=== PATIENT | female | born 1960 | race African-American/Black ===

== ENCOUNTER → 2017-02-06 | Outpatient (CLI) | payer BC, OTHER ==
[~2017-02-06] VITALS: Ht 162.6 cm; Wt 51.4 kg
[~2017-02-06] MED LIST: AMBIEN 10 MG TA10 MG PO; AMITRIPTYLINE H25 M2 PO; CELEXA 20 MG TA20 M1 PO; CENESTIN1.25 MG PO; CENTRUM TABLET1 TAB PO; CLIMARA 0.00.0375 MG TD; CLIMARA PRO PA1 EACH TD; CLIMARA1 EAC2 TD; COLACE100 MG PO; CYMBALTA30 MG PO; DESOXIMETASONE15 G1; DOXYCYCLINE 10100 MG PO; ESTROGEN-METHY1 EAC2 PO; FLAX SEED OIL1000 MG PO; FLEXERIL PO; GABAPENTIN100 MG PO; HAIR, SKIN & N1 EAC1 PO; HYDROCHLOROTH12.5 MG PO; HYDROCODON-ACE1 EAC4 PO; HYDROCODONE-AP1 EA11 PO; LIPITOR 20 MG T20 M1 PO; LIPITOR20 MG PO; LYRICA 75 MG CA75 MG; MEDROLDOSEPACK PO; MOBIC15 MG PO; MULTIVITAMINS1 EAC7 PO; NEURONTIN 300300 M1 PO; NORCO 10-325 T1 EACH PO; NORCO 5-325 TA1 EACH PO; OXYCONTIN10 M1 PO; PENICILLIN VK500 M1 PO; PERCOCET 5-3251 EACH PO; PHENERGAN 25 MG25 M1 PO; PREDNISONE 20 M20 M1 PO; PREMARIN0.625 MG PO; PROVERA2.5 MG PO; REMERON 30 MG T30 M1 PO; REQUIP0.5 MG PO; THERAPEUTIC SH177 ML TP; TRAZODONE 150150 M1 PO; VALTREX1000 MG PO; VICODIN 5-5001 EACH PO; VITAMIN B-12100 MC1 PO; VITAMIN D400 UNI1 PO; ZANAFLEX4 MG PO; ZANTAC 150MG T150 M1 PO; ZOFRAN ODT4 MG PO
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
[2017-02-06 13:51] VITALS: BP 159/99
== END | disposition home or self-care (01) ==
LOC: PAIN 07:00
DX: M54.16 Radiculopathy, lumbar region (principal); M54.9 Dorsalgia, unspecified; E03.9 Hypothyroidism, unspecified; F11.20 Opioid dependence, uncomplicated; Z98.890 Other specified postprocedural states

== ENCOUNTER → 2017-03-10 | Outpatient (CLI) | payer BC, OTHER ==
[~2017-03-10] VITALS: Ht 162.6 cm; Wt 51.7 kg
--- NOTE | ~2017-03-10 | HPC ---
[facility] [place] [address] PAIN MANAGEMENT CONSULTATION Name: ANIYAH HILLS Room #: REG SRINIVAS Blevins#: [id number] Admission: 03/10/17 Attend Phys: Ebenezer Camarena DO Discharge: Date of : 60 Report #: [id number] THIS REPORT FOR: //name// CC: Manolo Camarena This is a pleasant 56-year-old female, well known to the pain clinic, being treated for symptomatic lumbar radiculopathy, axial back pain requiring complex medication management. She was last seen in the pain clinic 12/08/2016. We continued on baseline medications. Returns to pain clinic today. She is actually doing remarkably well, "better than she has in some time". 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 She notes well pain is a 9/10. She is quite functional. She notes pain in the low back and feet. She does use spinal cord stimulator. She notes the pain is exacerbated by sitting, bending or standing. PHYSICAL EXAMINATION: Unchanged, pleasant 56-year-old female, BMI is 19.6 kilograms per meter squared. Blood pressure is modestly elevated 153/96, pulse 82, respirations are 14. Rises from chair using armrest. Gait is tandem. Diffuse tenderness across the back. No discrete trigger points are noted. Lower extremity strength is preserved at this time. Straight leg raise is negative. We reviewed the fact that opiate medications are being used to provide analgesia adequate to support activities of daily living, not attempting to achieve a specific pain score on the 0-10 Visual Analog Scale. The current opiate medications are providing sufficient analgesia to allow the patient to participate in activities of daily living. The patient is not exhibiting any aberrant behavior suggestive of drug diversion. The patient is not having any adverse reactions to medications. The patient is not suffering from daytime somnolence or mental acuity changes. The patient is managing opiate-induced constipation with appropriate iwii-ghh-uuqywmx agents and dietary considerations. The patient was counseled on concern for caution with operating a motor vehicle while using opiate medications. A physical exam was performed and the patient's functional status was evaluated. All patients with back pain were advised against the bed rest greater than 4 days and were advised to return to normal activities. Pain score assessment was noted and the treatment plan was reviewed with the patient. All current medications, both prescribed and OTC were reviewed and reconciled on the electronic medical record. Tobacco screening was accomplished and smoking cessation was advised when indicated. BMI was noted and diet/exercise modification was recommended for all patients following outside normal parameters. I reviewed with the patient today their responsibilities to safeguard prescription medications, reviewed their responsibility to utilize medications only as prescribed by the physician. They are to seek and receive pain [address] [address] PAIN MANAGEMENT CONSULTATION Name: ANIYAH HILLS SIMONE Room #: REG CLHelene Blevins#: [id number] Admission: 03/10/17 Attend Phys: Ebenezer Camarena DO Discharge: Date of : 60 Report #: [id number] medications only from 1 physician group ( [facility]). They are to use 1 pharmacy and keep the clinic informed if they change pharmacies. Their responsibilities include making followup visits in a timely fashion and to avoid abrupt discontinuation of medication usage. Their responsibilities further include bringing their medications (bottles from the pharmacy with residual pills) to the visit for possible confirmation of pill counts and the patient understands it is their responsibility to submit to random drug screens to ensure both that the medications prescribed are present, and that no other controlled substances are present. All prescriptions provided today were generated electronically. ASSESSMENT: Chronic pain syndrome requiring complex medication management, axial back pain and lumbar radiculopathy. RECOMMENDATIONS: Continue current medication unchanged, hydrocodone 10/325 up to 4 a day, tizanidine 4 mg t.i.d. for spasm, meloxicam 15 mg 1 a day. I did renew Zofran 4 mg ODT tablet q. 8 hours for nausea, vomiting, limit 10 tablets. The patient was cautioned about this agent exacerbating opiate-induced constipation. Discharged in good and stable condition. Follow up in 2 months for reevaluation. <ELECTRONICALLY SIGNED> By: Ebenezer Camarena DO 03/13/17 1118 1411 2127 Ebenezer Camarena DO /nt
[2017-03-10 13:26] VITALS: BP 153/96
== END ==
LOC: PAIN 05:51
DX: G89.29 Other chronic pain (principal); M54.16 Radiculopathy, lumbar region

== ENCOUNTER → 2017-05-08 | Outpatient (CLI) | payer BC, OTHER ==
[~2017-05-08] VITALS: Ht 162.6 cm; Wt 50.6 kg
[~2017-05-08] MED LIST changes: +BACLOFEN 10MG T10 MG PO
[2017-05-08 08:49] VITALS: BP 151/81
== END | disposition home or self-care (01) ==
LOC: PAIN 06:42
DX: M54.16 Radiculopathy, lumbar region (principal); M54.9 Dorsalgia, unspecified; Z79.899 Other long term (current) drug therapy

== ENCOUNTER → 2017-07-06 | Outpatient (CLI) | payer BC, OTHER ==
[~2017-07-06] VITALS: Ht 162.6 cm; Wt 52.2 kg
[~2017-07-06] MED LIST changes: +REMERON15 MG PO
--- NOTE | ~2017-07-06 | HPC ---
[facility] [address] [place] [address] PAIN MANAGEMENT CONSULTATION Name: JEANAANIYAH ANN Room #: REG SRINIVAS Blevins#: [id number] Admission: 07/06/17 Attend Phys: Ebenezer Camarena DO Discharge: Date of : 60 Report #: [id number] THIS REPORT FOR: //name// CC: Manolo Camarena The patient is a pleasant 57-year-old female, long treated for symptomatic lumbar radiculopathy requiring high risk complex medication management for neuropathic pain component. The patient presents to pain clinic today for prolonged visit, she was seen from 9:10 to 9:35. Greater than 50% of this 25-minute visit was spent counseling the patient. Buccal drug swab at last visit was positive for prescribed medications, but also positive for Delta-9-THC. The patient returns to pain clinic today. She has been having increasing pain, right lateral leg down to the ankle. She has right lateral leg pain down to the ankle. She has right greater than left lower extremity weakness. Spinal cord stimulator she does use daily, gives her paresthesia into the feet and a little bit to both legs. She charges it once to twice a week. She notes pain is getting worse. She rates it 9 on a VAS, exacerbated with sitting, bending and standing. The stimulator does give some relief, repositioning give some relief and medication gives some relief. The patient has been taking hydrocodone 10/325 up to 4 a day. Baclofen for spasm. Medication list was reconciled with the patient today. She has been prescribed trazodone 150 mg at bedtime, mirtazapine 30 mg at bedtime, Cymbalta 30 mg daily. The patient tells me she stopped all of these agents. States that they made her feel anxious and depressed. She tells me she does "take a bite" of her 30 mg Remeron at bedtime occasionally. When confronted about the THC in her urine, she states while she may have used marijuana 1 time on May 23. I pointed out that the buccal swab was obtained May 08. She ultimately stated that she does use marijuana occasionally as appetite stimulant. I suggested that with prescriptions for multiple central acting agents including hydrocodone, mirtazapine, Duloxetine and trazodone along with baclofen, a variable amount of THC in marijuana can have significant problematic cross reactions. Suggested if she needs something for appetite stimulation, Remeron 15 mg at bedtime would be reasonable. She does suffer from chronic anxiety and I thought it would be perhaps better to use at least 1 of the prescription agents which she has used in the past, i.e., low dose Remeron. Suggested we will repeat a buccal swab today. Initially the patient stated she had not smoked marijuana in 6-8 weeks, but when we got ready to obtain the [facility] [address] [place] [address] PAIN MANAGEMENT CONSULTATION Name: HILLSANIYAH Room #: REG SRINIVAS Blevins#: [id number] Admission: 07/06/17 Attend Phys: Ebenezer Camarena DO Discharge: Date of : 60 Report #: [id number] buccal swab, she stated it might be "dirty." I told her we will go ahead and check today and if it is positive for THC, we will check again in 4 weeks. If she is truly a p.r.n. recreational user and abstains for 4 weeks, buccal swab should be negative at next visit. Physical exam shows a 57-year-old female, BMI is modestly diminished at 19.7 kilograms per meter squared. Blood pressure is moderately elevated 149/98, pulse 85, respirations are 14. Rises from chair using armrest, modestly antalgic gait, positive straight leg raise on the right at 30 degrees. Right leg does show diminished strength to hip flexion, lower extremity extension and plantar flexion, about 3-4/5 versus 4/5 for the left leg. Patellar reflex is absent on the right, 1/4 in the left. Achilles reflex 1/4 and symmetric. Last diagnostic study was MRI of the lumbar spine for about 3 years ago, July 2014. Does note severe right neural foraminal stenosis at L3-L4 and L5-S1. L4-L5 notes bilateral neural foraminal narrowing, perhaps little greater on the left than the right. ASSESSMENT: 1. Symptomatic lumbar radiculopathy, neuropathic pain requiring high risk complex medication management. 2. Acute exacerbation of lumbar radiculopathy. RECOMMENDATION: 1. Long discussion with the patient today about therapeutic options and medication management. Again, strongly encouraged to stop using marijuana. 2. Buccal swab accomplished today. 3. We will order a CT myelogram of the lumbar spine. 4. Lumbar epidural injection at L4-L5 today. 5. I will renew hydrocodone 10/325 for 30 days. 6. Start patient Remeron 15 mg at bedtime. 7. Follow up in 4 weeks for reevaluation. PROCEDURE: Lumbar epidural injection under fluoroscopy. PROCEDURE: Lumbar epidural steroid injection. PROCEDURE NOTE: After both written and informed consent to include risk of spinal cord damage, increased pain, weakness and dural puncture, the patient was taken to the fluoroscopy suite, placed in the prone position. After sterile prep and drape, a skin wheal with lidocaine was raised. A 22-gauge epidural Tuohy needle was inserted in the midline at L4-L5 with good loss to resistance. Negative aspiration for cerebrospinal fluid or blood was noted. Then 1 mL of Omnipaque under biplanar fluoroscopy showed good spread within the epidural space. This was followed with 80 mg of triamcinolone plus 1 mL of 1.5% preservative-free Xylocaine, 0.5 mL Xylocaine was then injected to flush the [facility] [address] [place] [address] PAIN MANAGEMENT CONSULTATION Name: ANIYAH HILLS Room #: REG CLHelene Blevins#: [id number] Admission: 07/06/17 Attend Phys: Ebenezer Camarena DO Discharge: Date of : 60 Report #: [id number] needle; it was removed. The patient was monitored for an appropriate period of time and discharged in good and stable condition. By: 1222 1449 Ebenezer Camarena DO /nt
[2017-07-06 08:48] VITALS: BP 148/98
== END | disposition home or self-care (01) ==
LOC: PAIN 06:08
DX: M54.16 Radiculopathy, lumbar region (principal)

== ENCOUNTER → 2017-07-11 | Outpatient (CLI) | payer BC, OTHER | LOC: RAD 09:38 | DX: M47.896 Other spondylosis, lumbar region (principal); M48.06 Spinal stenosis, lumbar region; M41.86 Other forms of scoliosis, lumbar region ==

== ENCOUNTER → 2017-07-20 | Outpatient (CLI) | payer BC, OTHER ==
[~2017-07-20] VITALS: Ht 162.6 cm; Wt 53.7 kg
--- NOTE | ~2017-07-20 | HPC ---
[facility] [place] [place] [address] PAIN MANAGEMENT CONSULTATION Name: ANIYAH HILLS Room #: REG SRINIVAS Blevins#: [id number] Admission: 07/20/17 Attend Phys: Ebenezer Camarena DO Discharge: Date of : 60 Report #: [id number] THIS REPORT FOR: //name// CC: Manolo Camarena DATE OF SERVICE: 07/20/2017 The patient is a 57-year-old female well known to the pain clinic, typically treated for lumbar radiculopathy, neuropathic pain requiring high risk complex medication management. She has a spinal cord stimulator in place. Last visit 07/06/2017, we did an epidural injection with incremental improvement of baseline pain. Started the patient on Remeron 15 mg at bedtime to help with appetite stimulant. Continued hydrocodone 10/325 up to 4 a day. The patient was having increasing ongoing pain, ordered a CT myelogram of the lumbar spine. The patient returns to pain clinic today. She was seen for moderately prolonged visit, during which we reviewed her CT myelogram findings. I discussed to her specific anatomy using the plastic model spine. The patient does have advanced lumbar spondylosis with a little scoliosis, multilevel central stenosis with a varying degrees and neural foraminal stenosis throughout the lumbar spine. She has some stenosis higher up at T12-L1, L1-L2 and L2-L3. We concluded this may be contributing to some of her abdominal pain. Overall, the patient notes subjective pain score is 8 on a VAS, primary pain, low back, buttocks and legs, again with a little abdominal wall pain. Pain is exacerbated with sitting, bending or standing. Spinal cord stimulator does help with pain. Current medications do keep patient functional. We reviewed the fact that opiate medications are being used to provide analgesia adequate to support activities of daily living, not attempting to achieve a specific pain score on the 0-10 Visual Analog Scale. The current opiate medications are providing sufficient analgesia to allow the patient to participate in activities of daily living. The patient is not exhibiting any aberrant behavior suggestive of drug diversion. The patient is not having any adverse reactions to medications. The patient is not suffering from daytime somnolence or mental acuity changes. The patient is managing opiate-induced constipation with appropriate fqeo-wbp-fshnmiu agents and dietary considerations. The patient was counseled on concern for caution with operating a motor vehicle while using opiate medications. A physical exam was performed and the patient's functional status was evaluated. All patients with back pain were advised against the bed rest greater than 4 days and were advised to return to normal activities. Pain score assessment was noted and the treatment plan was reviewed with the patient. All current [address] [address] PAIN MANAGEMENT CONSULTATION Name: ANIYAH HILLS Room #: REG SRINIVAS Blevins#: [id number] Admission: 07/20/17 Attend Phys: Ebenezer Camarena DO Discharge: Date of : 60 Report #: [id number] medications, both prescribed and OTC were reviewed and reconciled on the electronic medical record. Tobacco screening was accomplished and smoking cessation was advised when indicated. BMI was noted and diet/exercise modification was recommended for all patients following outside normal parameters. I reviewed with the patient today their responsibilities to safeguard prescription medications, reviewed their responsibility to utilize medications only as prescribed by the physician. They are to seek and receive pain medications only from 1 physician group ( [facility]). They are to use 1 pharmacy and keep the clinic informed if they change pharmacies. Their responsibilities include making followup visits in a timely fashion and to avoid abrupt discontinuation of medication usage. Their responsibilities further include bringing their medications (bottles from the pharmacy with residual pills) to the visit for possible confirmation of pill counts and the patient understands it is their responsibility to submit to random drug screens to ensure both that the medications prescribed are present, and that no other controlled substances are present. All prescriptions provided today were generated electronically. Last buccal swab obtained 07/06/2017 was positive for prescribed medications, no elicit agents were noted (the patient had prior had a single THC positive screen). I did note that there were nicotine metabolites present. We talked about smoking, which she does intermittently, suggest she discontinue that as it can contribute to osteoporosis and axial back pain as well as general poor health concerns. PHYSICAL EXAMINATION: Otherwise unchanged 57-year-old female, BMI is 20.3 kilograms per meter squared. Blood pressure is elevated today 171/99, pulse is 101, respirations are 14. Alert and oriented to person, place and time, judged to be a reasonable historian. Rises from chair using armrest. Diffuse tenderness in the lumbar spine. Gait is nominally antalgic. Lower extremity strength is generally preserved at this time. ASSESSMENT: Symptomatic lumbar radiculopathy, axial back pain, neuropathic pain requiring high risk complex medication management. I will ask buccal drug swab positive for prescribed medications and no others on 07/06/2017. RECOMMENDATION: I have taken the liberty of renewing hydrocodone 10/325 up to 4 a day, prescriptions for 2 weeks and 6 weeks release, follow up in 10 weeks for reevaluation. <ELECTRONICALLY SIGNED> By: Ebenezer Camarena DO 07/21/17 0819 1212 0541 Ebenezer Camarena DO /nt
[2017-07-20 11:04] VITALS: BP 171/99
== END | disposition home or self-care (01) ==
LOC: PAIN 06:35
DX: M54.16 Radiculopathy, lumbar region (principal); G62.9 Polyneuropathy, unspecified; Z79.899 Other long term (current) drug therapy

== ENCOUNTER → 2017-09-21 | Outpatient (CLI) | payer BC, OTHER ==
[~2017-09-21] VITALS: Ht 162.6 cm; Wt 54.0 kg
[~2017-09-21] MED LIST changes: +NORVASC10 MG PO
--- NOTE | ~2017-09-21 | HPC ---
[facility] [place] [address] PAIN MANAGEMENT CONSULTATION Name: HILLSANIYAH SIMONE Room #: REG SRINIVAS Blevins#: [id number] Admission: 09/21/17 Attend Phys: Ebenezer Camarena DO Discharge: Date of : 60 Report #: [id number] THIS REPORT FOR: //name// CC: Manolo Camarena HISTORY OF PRESENT ILLNESS: The patient is a pleasant 57-year-old female, long known to pain clinic, being treated for lumbar radiculopathy, neuropathic pain, thoracic radiculopathy, component of nicotine habituation, stable on complex medication management. She does use spinal cord stimulator with good efficacy. Last seen in pain clinic on 07/20/2017. She was having problems with weight loss. We have been using Remeron 15 mg at bedtime for appetite stimulation as well as sleep. BMI at last visit was 20.3 kilograms per meter squared, increased ever so slightly at 20.4 BMI today. Uses hydrocodone 10/325 up to 4 a day for ongoing lumbar radicular pain. Returns to pain clinic today noting that while medications are generally providing sufficient analgesia to participate in activities of daily living; with holiday meals and increased activity, she is having increasing pain, right lateral leg down the L4 distribution. Rates pain at 7 on a VAS, exacerbated with sitting, bending and standing, gets some relief with the spinal cord stimulator, repositioning and medication. PHYSICAL EXAMINATION: GENERAL: Shows 57-year-old female, BMI is 20.4 kilograms per meter squared. VITAL SIGNS: She is afebrile, temperature is 97.7. Vital signs show modest hypertension 173/92, pulse 70, respirations 14. EXTREMITIES: Rises from chair using armrest, moderately antalgic gait, positive straight leg raise on the right, decreased right hip flexion strength. Patellar reflexes absent on the right, 1/4 left. Achilles reflexes are symmetric. ASSESSMENT: 1. Symptomatic lumbar radiculopathy. 2. Acute exacerbation of lumbar radicular pain. 3. Neuropathic pain. 4. Thoracic radiculopathy with history of chronic pain syndrome requiring high risk complex medication management. RECOMMENDATIONS: 1. Renew hydrocodone 10/ up to 4 a day, I have taken the liberty of writing for 2 current medications. 2. Complex medication management on opiate consent to treat contract, last buccal swab on 07/07/2017 positive for prescribed medications. 3. Acute exacerbation of lumbar radiculopathy. RECOMMENDATION: Epidural injection under fluoroscopy today at L4-L5. PROCEDURE: Lumbar epidural injection under fluoroscopy. [address] [address] PAIN MANAGEMENT CONSULTATION Name: HILLSANIYAH Room #: REG SRINIVAS Blevins#: [id number] Admission: 09/21/17 Attend Phys: Ebenezer Camarena DO Discharge: Date of : 60 Report #: [id number] PROCEDURE NOTE: After both written and informed consent to include risk of spinal cord damage, increased pain, weakness and dural puncture, the patient was taken to the fluoroscopy suite, placed in the prone position. After sterile prep and drape, a skin wheal with lidocaine was raised. A 22-gauge epidural Tuohy needle was inserted in the midline at L4-L5 with good loss to resistance. Negative aspiration for cerebrospinal fluid or blood was noted. Then 1 mL of Omnipaque under biplanar fluoroscopy showed good spread within the epidural space. This was followed with 80 mg of triamcinolone plus 1 mL of 1.5% preservative-free Xylocaine, 0.5 mL Xylocaine was then injected to flush the needle; it was removed. The patient was monitored for an appropriate period of time and discharged in good and stable condition. We reviewed the fact that opiate medications are being used to provide analgesia adequate to support activities of daily living, not attempting to achieve a specific pain score on the 0-10 Visual Analog Scale. The current opiate medications are providing sufficient analgesia to allow the patient to participate in activities of daily living. The patient is not exhibiting any aberrant behavior suggestive of drug diversion. The patient is not having any adverse reactions to medications. The patient is not suffering from daytime somnolence or mental acuity changes. The patient is managing opiate-induced constipation with appropriate urrd-jri-mknxgwa agents and dietary considerations. The patient was counseled on concern for caution with operating a motor vehicle while using opiate medications. A physical exam was performed and the patient's functional status was evaluated. All patients with back pain were advised against the bed rest greater than 4 days and were advised to return to normal activities. Pain score assessment was noted and the treatment plan was reviewed with the patient. All current medications, both prescribed and OTC were reviewed and reconciled on the electronic medical record. Tobacco screening was accomplished and smoking cessation was advised when indicated. BMI was noted and diet/exercise modification was recommended for all patients following outside normal parameters. I reviewed with the patient today their responsibilities to safeguard prescription medications, reviewed their responsibility to utilize medications only as prescribed by the physician. They are to seek and receive pain medications only from 1 physician group ( [facility]). They are to use 1 pharmacy and keep the clinic informed if they change pharmacies. Their responsibilities include making followup visits in a timely fashion and to avoid abrupt discontinuation of medication usage. Their responsibilities further include bringing their medications (bottles from the pharmacy with residual pills) to the visit for possible confirmation of pill counts and the patient understands it is their responsibility to submit to random drug screens to ensure both that the medications prescribed are present, and that no other [facility] [address] [place] [address] PAIN MANAGEMENT CONSULTATION Name: ANIYAH HILLS SIMONE Room #: REG [facility].#: [id number] Admission: 09/21/17 Attend Phys: Ebenezer Camarena DO Discharge: Date of : 60 Report #: [id number] controlled substances are present. All prescriptions provided today were generated electronically. <ELECTRONICALLY SIGNED> By: Ebenezer Camarena DO 09/25/17 0759 0636 0948 Ebenezer Camarena DO /nt
[2017-09-21 08:23] VITALS: BP 173/92
== END | disposition home or self-care (01) ==
LOC: PAIN 06:32
DX: M54.16 Radiculopathy, lumbar region (principal); M54.14 Radiculopathy, thoracic region; Z98.890 Other specified postprocedural states; Z79.891 Long term (current) use of opiate analgesic; Z88.2 Allergy status to sulfonamides; Z79.899 Other long term (current) drug therapy

== ENCOUNTER 2017-09-22 14:04 | Emergency (ER) | payer BC, OTHER ==
[~2017-09-22] VITALS: Ht 162.6 cm; Wt 54.0 kg
--- NOTE | ~2017-09-22 | EKG ---
[address] [address] ELECTROCARDIOGRAM REPORT Name: ANIYAH HILLS Room #: DEP Felicity#: [id number] Admission: 09/22/17 Attend Phys: Discharge: 09/22/17 Date of : 60 Report #: [id number] THIS REPORT FOR: //name// [facility] ED Test Date: 2017-09-22 Test Time: 14:57:42 Pat Name: ANIYAH HILLS Department: Room: Gender: F [employer] Furn[employer] Installer: [id number] : 1960 Requested By: Payton Guillaume Order Number: [id number] MD: Palmer Schneider Measurements Intervals [place] Rate: 79 P: 81 OK: 144 QRS: 42 QRSD: 86 T: 32 QT: 355 QTc: 407 Interpretive Statements Sinus rhythm Probable left atrial enlargement Probable left ventricular hypertrophy Anterior ST elevation, probably due to LVH Compared to ECG 02/03/2015 10:38:19 Left ventricular hypertrophy now present ST (T wave) deviation now present Electronically Signed On 09-23-2017 12:41:46 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
[~2017-09-22 14:04] MED LIST changes: -NORVASC10 MG PO
[2017-09-22 15:06] LABS: ABSOLUTE NEUTROPHILS 3.7 thou/uL (1.4-8.2); BASOPHILS 0.7 % (0.0-2.0); EOSINOPHILS 0.5 % (0.0-3.0); HEMATOCRIT 39.6 % (37.0-47.0); HEMOGLOBIN 13.2 gm/dL (12.0-15.0); LYMPHOCYTES 31.9 % (24.0-44.0); MCH 32.1 pg (26.0-34.0); MCHC 33.4 g/dL (28.0-37.0); MCV 96.4 fL (80.0-100.0); MONOCYTES 8.8 % (1.0-8.0); PLATELET COUNT 228 thou/uL (150-400); POLYS 58.1 % (36.0-66.0); RBC 4.11 mil/uL (4.20-5.00); RDW 13.7 % (10.5-14.5); WBC 6.4 thou/uL (4.0-11.0)
[2017-09-22 15:14] LABS: ANION GAP 9 mmol/L (7-16); BUN 15 mg/dL (7-18); CALCIUM 9.4 mg/dL (8.5-10.1); CHLORIDE 104 mmol/L (98-107); CO2 25 mmol/L (21-32); CREATININE 0.8 mg/dL (0.6-1.0); GLUCOSE 119 mg/dL (74-106); POTASSIUM 3.5 mmol/L (3.5-5.1); SODIUM 138 mmol/L (136-145)
[2017-09-22 15:23] LABS: ALBUMIN 4.1 g/dL (3.4-5.0); SGOT 16 U/L (15-37); SGPT 17 U/L (30-65); TOTAL BILIRUBIN 0.3 mg/dL (<0.1-1.0); TOTAL PROTEIN 7.4 g/dL (6.4-8.2); TROPONIN-I < 0.04 ng/mL (<0.06)
[2017-09-22 15:30] LABS: URINE BILIRUBIN NEGATIVE (Negative); URINE BLOOD 3+ (Negative); URINE CLARITY CLEAR; URINE COLOR YELLOW; URINE GLUCOSE-RANDOM* NEGATIVE (Negative); URINE KETONES NEGATIVE (Negative); URINE LEUKOCYTES NEGATIVE (Negative); URINE NITRITE NEGATIVE (Negative); URINE PROTEIN (DIPSTICK) NEGATIVE (Negative); URINE SPECIFIC GRAVITY 1.025 (1.003-1.035); URINE UROBILINOGEN 0.2 E.U./dl (0.2-1.0)
[2017-09-22 15:37] LABS: MUCUS 4-6 Moderate strn/LPF (None Seen)
[2017-09-22 15:38] LABS: BACTERIA 1-9 Few /HPF (None Seen); CASTS None Seen /LPF (None Seen); CRYSTALS None Seen /LPF (None Seen); SQUAMOUS 0-3 Few /LPF (0-3); URINE RBC 3-10 Few /HPF (0-2); URINE WBC 0-5 Rare /HPF (0-5)
[2017-09-22] MEDS ORDERED: NORVASC10 MG PO (16:40)
[2017-09-22 16:59] VITALS: BP 170/97
[2017-12-08] MEDS ORDERED: REMERON15 MG PO (09:48)
[2017-12-08] MEDS ORDERED: NORCO 10-325 T1 EACH PO (09:48)
[2017-12-08] MEDS ORDERED: MOBIC15 MG PO (09:48)
[2017-12-08] MEDS ORDERED: BACLOFEN 10MG T10 MG PO (09:48)
[2018-02-01] MEDS ORDERED: BACLOFEN 10MG T10 MG PO (10:04)
[2018-02-01] MEDS ORDERED: NORCO 10-325 T1 EAC1 PO (10:04)
[2018-02-01] MEDS ORDERED: NORCO 10-325 T1 EACH PO (10:04)
[2018-02-01] MEDS ORDERED: REMERON15 MG PO (10:04)
[2018-02-01] MEDS ORDERED: MOBIC15 MG PO (10:04)
[2018-03-08] MEDS ORDERED: BACLOFEN 10MG T10 MG PO (11:26)
[2018-03-08] MEDS ORDERED: REMERON15 MG PO (11:26)
[2018-03-08] MEDS ORDERED: MOBIC15 MG PO (11:26)
[2018-03-08] MEDS ORDERED: NORCO 10-325 T1 EAC1 PO (11:26)
[2018-03-08] MEDS ORDERED: ZOFRAN ODT4 MG PO (11:26)
[2018-05-30] MEDS ORDERED: NORCO 10-325 T1 EACH PO (14:44)
[2018-05-30] MEDS ORDERED: NORCO 10-325 T1 EAC1 PO (14:44)
[2018-05-30] MEDS ORDERED: REMERON15 MG PO (14:44)
[2018-05-30] MEDS ORDERED: BACLOFEN 10MG T10 MG PO (14:44)
[2018-05-30] MEDS ORDERED: MOBIC15 MG PO (14:44)
[2018-05-30] MEDS ORDERED: NORVASC10 MG PO (14:44)
[2018-05-30] MEDS ORDERED: ZOFRAN ODT4 MG PO (14:44)
[2018-07-18] MEDS ORDERED: REMERON15 MG PO (10:13)
[2018-07-18] MEDS ORDERED: NORCO 10-325 T1 EAC1 PO (10:13)
[2018-07-18] MEDS ORDERED: MOBIC15 MG PO (10:13)
[2018-07-18] MEDS ORDERED: ZOFRAN ODT4 MG PO (10:13)
[2018-07-18] MEDS ORDERED: NORCO 10-325 T1 EACH PO (10:13)
[2018-07-18] MEDS ORDERED: BACLOFEN 10MG T10 MG PO (10:13)
== END 2017-09-22 17:00 | disposition home or self-care (01) ==
LOC: ER 14:04
PROVIDERS: Nurse Practitioner Family
DX: I16.0 Hypertensive urgency (principal); M19.90 Unspecified osteoarthritis, unspecified site; M79.7 Fibromyalgia; K21.9 Gastro-esophageal reflux disease without esophagitis; F17.210 Nicotine dependence, cigarettes, uncomplicated; F12.10 Cannabis abuse, uncomplicated; Z88.2 Allergy status to sulfonamides

== ENCOUNTER → 2017-12-08 | Outpatient (CLI) | payer BC, OTHER ==
[~2017-12-08] VITALS: Ht 162.6 cm; Wt 54.0 kg
[~2017-12-08] MED LIST changes: +NORCO 10-325 T1 EAC1 PO; +NORVASC10 MG PO
--- NOTE | ~2017-12-08 | HPC ---
[facility] [place] [address] PAIN MANAGEMENT CONSULTATION Name: HILLSANIYAH SIMONE Room #: REG SRINIVAS Spence.#: [id number] Admission: 12/08/17 Attend Phys: Ebenezer Camarena DO Discharge: Date of : 60 Report #: [id number] THIS REPORT FOR: //name// CC: Manolo Camarena DATE OF SERVICE: 12/08/2017 HISTORY OF PRESENT ILLNESS: The patient is a 57-year-old female typically treated for lumbar and thoracic radiculopathy, neuropathic pain, requiring complex medication management. Last seen in the pain clinic on 09/21/2017. She was continued on baseline medication. Given epidural injection at L4-L5. She has a spinal cord stimulator in place, which is helpful. Last random drug screen on 07/06/2017 is positive for prescribed medications and no others. Also, positive for nicotine. The patient returns to pain clinic today noting the injection afforded good relief, specifically 60-70%. She is able to function better with less medications. She does note pain continues to be problematic with sitting and bending. Rates the pain as 7 on VAS at its worst. PHYSICAL EXAMINATION: Shows a 57-year-old female, 5 feet 4 inches, 119 pounds, BMI is 20.4 kilograms per meter squared. Blood pressure is 141/98, pulse 98, respirations 16. Subjective pain score is 7 on VAS. She has not fallen in the last 3 months. She is hypertensive. Medication list was reconciled. Opiate consent to treat, contract was signed on 05/20/2016. She rises from the chair using the armrest. Pain in the low back, right hip and leg, similarly in the left lateral L4 distribution; however, gait is tandem. She appears much more mobile than last visit. Range of motion is good. Lumbar flexion is good to about 80 degrees. Positive straight leg raise, right greater than left, slight decreased right hip flexion range of motion. Patellar reflexes are 0/4 in the right leg, 1/4 in the left. Achilles reflexes are preserved. We reviewed the fact that opiate medications are being used to provide analgesia adequate to support activities of daily living, not attempting to achieve a specific pain score on the 0-10 Visual Analog Scale. The current opiate medications are providing sufficient analgesia to allow the patient to participate in activities of daily living. The patient is not exhibiting any aberrant behavior suggestive of drug diversion. The patient is not having any adverse reactions to medications. The patient is not suffering from daytime somnolence or mental acuity changes. The patient is managing opiate-induced constipation with appropriate fwll-bkh-glfgyft agents and dietary considerations. The patient was counseled on concern for caution with operating [address] [address] PAIN MANAGEMENT CONSULTATION Name: ANIYAH HILLS Room #: REG SRINIVAS Blevins#: [id number] Admission: 12/08/17 Attend Phys: Ebenezer Camarena DO Discharge: Date of : 60 Report #: [id number] a motor vehicle while using opiate medications. A physical exam was performed and the patient's functional status was evaluated. All patients with back pain were advised against the bed rest greater than 4 days and were advised to return to normal activities. Pain score assessment was noted and the treatment plan was reviewed with the patient. All current medications, both prescribed and OTC were reviewed and reconciled on the electronic medical record. Tobacco screening was accomplished and smoking cessation was advised when indicated. BMI was noted and diet/exercise modification was recommended for all patients following outside normal parameters. I reviewed with the patient today their responsibilities to safeguard prescription medications, reviewed their responsibility to utilize medications only as prescribed by the physician. They are to seek and receive pain medications only from 1 physician group ( [facility]). They are to use 1 pharmacy and keep the clinic informed if they change pharmacies. Their responsibilities include making followup visits in a timely fashion and to avoid abrupt discontinuation of medication usage. Their responsibilities further include bringing their medications (bottles from the pharmacy with residual pills) to the visit for possible confirmation of pill counts and the patient understands it is their responsibility to submit to random drug screens to ensure both that the medications prescribed are present, and that no other controlled substances are present. All prescriptions provided today were generated electronically. ASSESSMENT: Symptomatic lumbar radiculopathy, thoracic radiculopathy, neuropathic pain, requiring complex medication management. RECOMMENDATIONS: The patient was counseled regarding smoking, she states she smokes "occasionally." We have elected to continue baseline medication unchanged, hydrocodone 10/325 up to 4 a day. She does not warrant interventional therapy at this time. Continue meloxicam 15 mg daily, baclofen 10 mg up to t.i.d. for spasm, Remeron 15 mg at bedtime. Follow up in 2 months for reevaluation. Discharged in good and stable condition. <ELECTRONICALLY SIGNED> By: Ebenezer Camarena DO 12/13/17 0725 1530 0222 Ebenezer Camarena DO /nt
[2017-12-08 09:27] VITALS: BP 141/98
== END ==
LOC: PAIN 07:18
DX: M54.16 Radiculopathy, lumbar region (principal); M54.14 Radiculopathy, thoracic region; Z79.899 Other long term (current) drug therapy

== ENCOUNTER → 2018-02-01 | Outpatient (CLI) | payer BC, OTHER ==
[~2018-02-01] VITALS: Ht 162.6 cm; Wt 54.3 kg
--- NOTE | ~2018-02-01 | HPC ---
[facility] [address] [place] [address] PAIN MANAGEMENT CONSULTATION Name: HILLSANIYAH SIMONE Room #: REG SRINIVAS Spence.#: [id number] Admission: 02/01/18 Attend Phys: Ebenezer Camarena DO Discharge: Date of : 60 Report #: [id number] THIS REPORT FOR: //name// CC: Manolo Camarena DATE OF SERVICE: 02/01/2018 The patient is a 57-year-old female, long known to the pain clinic, typically treated for thoracic and lumbar radiculopathy, neuropathic pain requiring complex medication management. She has a spinal cord stimulator in place, which has been helpful. Last random drug screen 06/26/2017 was positive for prescribed medications. She returns to pain clinic today noting pain is beginning to recur without antecedent trauma and overuse. Pain is primarily in the low back, right buttock and leg posterolateral aspect. She rates pain an 8 on VAS. Notes pain is exacerbated with sitting, bending and standing, some relief with repositioning and her stimulator. Unfortunately, she lost a piece to chart the [employer] spinal cord stimulator. We did attempt to contract [employer] today as she has to get this piece replaced. PHYSICAL EXAMINATION: Shows a 57-year-old female, BMI is 20.6 kilograms per meter squared. Blood pressure 142/85, pulse 84, respirations are 14. Alert and oriented to person, place and time, judged to be a reasonable historian. Rises from chair using armrest, modestly antalgic gait, positive straight leg raise at 30 degrees on the right. Right hip flexion, lower extremity extension strength is 3/5, is 4/5 on the left side. Skin integument is intact. ASSESSMENT: 1. Symptomatic lumbar radiculopathy, clinical exam and history with acute right L4 radiculopathy. 2. Thoracic and lumbar radiculopathy with ongoing neuropathic pain. 3. Complex medication management. RECOMMENDATIONS: 1. We will continue hydrocodone 10/325 up to 4 a day, meloxicam 15 mg 1 a day, Remeron 15 mg at bedtime for appetite stimulation and sedation and baclofen 10 mg typically b.i.d. for spasm. 2. Acute exacerbation of lumbar radiculopathy. PROCEDURE: Lumbar epidural injection under fluoroscopy. PROCEDURE NOTE: After both written and informed consent to include risk of spinal cord damage, increased pain, weakness and dural puncture, the patient was taken to the fluoroscopy suite, placed in the prone position. After sterile prep and drape, a skin wheal with lidocaine was raised. A 22-gauge epidural Tuohy needle was inserted in the midline at L4-L5 with good loss to resistance. [address] [address] PAIN MANAGEMENT CONSULTATION Name: ANIYAH HILLS Room #: REG SRINIVAS Blevins#: [id number] Admission: 02/01/18 Attend Phys: Ebenezer Camarena DO Discharge: Date of : 60 Report #: [id number] Negative aspiration for cerebrospinal fluid or blood was noted. Then 1 mL of Omnipaque under biplanar fluoroscopy showed good spread within the epidural space. This was followed with 80 mg of triamcinolone plus 1 mL of 1.5% preservative-free Xylocaine, 0.5 mL Xylocaine was then injected to flush the needle; it was removed. The patient was monitored for an appropriate period of time and discharged in good and stable condition. <ELECTRONICALLY SIGNED> By: Ebenezer Camarena DO 02/05/18 0822 1202 1847 Ebenezer Camarena DO /nt
[2018-02-01 09:32] VITALS: BP 142/85
== END | disposition home or self-care (01) ==
LOC: PAIN 07:17
DX: M54.16 Radiculopathy, lumbar region (principal); M54.14 Radiculopathy, thoracic region; G89.29 Other chronic pain; Z79.891 Long term (current) use of opiate analgesic; Z88.2 Allergy status to sulfonamides; Z79.899 Other long term (current) drug therapy

== ENCOUNTER → 2018-07-18 | Outpatient (CLI) | payer BC, OTHER ==
[~2018-07-18] VITALS: Ht 162.6 cm; Wt 57.1 kg
--- NOTE | ~2018-07-18 | HPC ---
[facility] [place] [place] [address] PAIN MANAGEMENT CONSULTATION Name: ANIYAH HILLS Room #: REG SRINIVAS Blevins#: [id number] Admission: 07/18/18 Attend Phys: Robbin Browning MD Discharge: Date of : 60 Report #: [id number] THIS REPORT FOR: //name// CC: Robbin Hensley DATE OF SERVICE: 07/18/2018 Here for medication renewal. FOLLOWUP HISTORY: The patient is a 58-year-old female who has been followed in the pain clinic because of chronic pain with lumbar radiculopathy history. She has been treated with epidural steroid injection for lumbar radiculopathy and found this beneficial. She also has a component of neuropathic pain. Because of this complex pain, she has been treated with complex medical management and treatment. She also has a history of spinal cord stimulator in place. She finds that this continues to be beneficial. She has used hydrocodone to help with pain control. Takes about 4 tablets per day. She has pain at this juncture in the L4-L5 distribution. She finds that the medications continue to be helpful. She has undergone epidural steroid injections and underwent an epidural steroid injection at the last visit. Gleaned greater than 50% improvement. The patient is scheduled to move to [place]. She did move to [place]. Because of her [place] address, it was difficult for her to get her opioid medications from the pharmacy. States that she took the medications scripts to the pharmacy. They sequestered them and refused to give them back to her. She has come back to [place] to take care of some other business. She has returned to the Pain Clinic for renewal of her medications. She has the intention of getting acquainted with the nearest Pain Clinic in the area. ALLERGIES: SULFA. CURRENT MEDICATIONS: Zofran 4 mg, Remeron 15 mg, Mobic 15 mg, hydrocodone 10/325, baclofen 10 mg, amlodipine 10 mg, Climara Pro patch transdermal weekly, Provera 2.5 mg daily, Colace 100 mg, multivitamins, B12, Zantac 150 mg p.r.n. PAST MEDICAL HISTORY: Hypertension, nausea, spinal stenosis, fibromyalgia, peripheral neuropathy, rheumatoid arthritis, lumbar radiculopathy, neuropathy, bilateral feet, reflux, spinal cord stimulator placement. PAIN CLINIC ASSESSMENT/PQRS: 1. History of osteoarthritis involving the lower back with stenosis. The patient is not being treated for rheumatoid arthritis. 2. Height 5 feet 4 inches, weight 125 pounds, BMI is 21. 3. Vital signs: Blood pressure 155/95, pulse 66, respiratory rate 14, room air saturation is 100%. 4. Pain intensity 10+. [facility] [address] [place] [address] PAIN MANAGEMENT CONSULTATION Name: ANIYAH HILLS SIMONE Room #: REG CLHelene Spence.#: [id number] Admission: 07/18/18 Attend Phys: Robbin Browning MD Discharge: Date of : 60 Report #: [id number] 5. Fall. The patient has not fallen in the last 3 months. 6. Blood thinner. The patient is not on a blood thinning medication. 7. Hypertension. The patient is being treated for hypertension. 8. Opioid therapy greater than 6 weeks. The patient [facility]. 9. Risk assessment tool, moderate wrist flex 03/29 for opioid use. 10. Functional assessment tool . 11. Recreational drug use. The patient denies use of recreational drugs. 12. Tobacco: The patient denies use of tobacco. 13. Alcohol: The patient denies frequent use of alcoholic beverages. 14. Rheumatoid - patient is being treated for rheumatoid arthritis. PHYSICAL EXAMINATION: GENERAL: The patient is a well-developed, well-nourished black female. She appears her stated age. She is alert and oriented x 3. Her affect is appropriate. Speech is fluent. HEENT: Normocephalic, atraumatic. Extraocular eye muscles intact. Mucous membranes are moist. NECK: Without adenopathy or bruits. HEART: Regular rate. ABDOMEN: Nontender bowel sounds present. MUSCULOSKELETAL: Without significant scoliosis, kyphosis or lordosis. The patient has some decreased range of motion in her left shoulder secondary to replacement and low back pain. The patient has pain that radiates down into her buttocks and down to the right leg and involves her foot. Notes muscle strength is judged to be 5/5 for the major muscle groups in the lower extremity. The patient does have a slight antalgic gait. The patient complains of some pain and discomfort secondary to neuropathy in her feet bilaterally. IMPRESSION: 1. Low back pain with radiation down into the right buttocks, right leg and into her foot. 2. Hypertension. 3. Nausea. 4. Spinal stenosis. 5. Fibromyalgia. 6. Peripheral neuropathy. 7. Rheumatoid arthritis. 8. Lumbar radiculopathy. 9. Neuropathy, bilateral feet. 10. Reflux. 11. Spinal cord stimulator. RECOMMENDATIONS: We discussed treatment options with the patient at this juncture, we will write for the patient's pain medications of [place] 10, one p.o. q.i.d. total of 100, baclofen 10 mg 100 tablets, Meloxicam 15 mg, a total of [address] [address] PAIN MANAGEMENT CONSULTATION Name: ANIYAH HILLS Room #: REG [facility]..#: [id number] Admission: 07/18/18 Attend Phys: Robbin Browning MD Discharge: Date of : 60 Report #: [id number] tablets, Zofran 4 mg q. 8 hours p.r.n., total of 10. The patient will call us if she has any concerns. She has moved to [place]. She has been in good status with the Pain Clinic. She has had no complications. She should be accepted in the Pain Clinic, which she chooses given her good history of following the Pain Clinic contract regarding opioid use. <ELECTRONICALLY SIGNED> By: Robbin Browning MD 08/06/18 1124 1853 0147 Robbin Browning MD /nt
[2018-07-18 09:49] VITALS: BP 155/95
== END ==
LOC: PAIN 06:42
DX: M54.5 Low back pain (principal); G89.29 Other chronic pain; M19.072 Primary osteoarthritis, left ankle and foot; M19.071 Primary osteoarthritis, right ankle and foot; Z79.899 Other long term (current) drug therapy